=== PATIENT | female | born 1965 | race Caucasian/White ===

== ENCOUNTER → 2016-12-05 | Outpatient (CLI) | payer OTHER | LOC: FIMAGING 15:45 | PROVIDERS: ATTEND Internal Medicine Hematology & Oncology | DX: Z12.31 Encounter for screening mammogram for malignant neoplasm of breast (principal); Z85.3 Personal history of malignant neoplasm of breast; Z92.3 Personal history of irradiation | CPT/HCPCS: G0202 ==

== ENCOUNTER → 2017-09-29 | Outpatient (CLI) | payer OTHER ==
[~2017-09-29] MED LIST: LABETALOL HCL 5 MG/ML 20 ML MDV ONE; METOCLOPRAMIDE 10 MG/2 ML VIAL ONE; fentaNYL 100 MCG/2 ML INJ ONE
== END ==
LOC: CIMAGING 16:25
PROVIDERS: ATTEND Family Medicine
DX: M62.830 Muscle spasm of back (principal); M54.2 Cervicalgia
CPT/HCPCS: 72052-PO; J1200; J2765; J3010

== ENCOUNTER → 2018-01-06 | Outpatient (CLI) | payer OTHER | LOC: FIMAGING 15:16 | PROVIDERS: ATTEND Internal Medicine Hematology & Oncology | DX: Z12.31 Encounter for screening mammogram for malignant neoplasm of breast (principal); Z85.3 Personal history of malignant neoplasm of breast; Z90.12 Acquired absence of left breast and nipple ==

== ENCOUNTER → 2018-07-14 | Outpatient (CLI) | payer MEDICAID | LOC: FIMAGING 15:02 | PROVIDERS: ATTEND Internal Medicine Hematology & Oncology | DX: N64.4 Mastodynia (principal); Z85.3 Personal history of malignant neoplasm of breast ==

== ENCOUNTER → 2018-07-20 | Outpatient (CLI) | payer MEDICAID | LOC: FIMAGING 11:18 | PROVIDERS: ATTEND Internal Medicine Hematology & Oncology | DX: N64.4 Mastodynia (principal); R92.8 Other abnormal and inconclusive findings on diagnostic imaging of breast ==